=== PATIENT | male | born 1970 | race Caucasian/White ===

== ENCOUNTER → 2018-05-19 | Outpatient (CLI) | payer BC | LOC: GMAH 12:15 | PROVIDERS: ATTEND Family Medicine | DX: E29.9 Testicular dysfunction, unspecified (principal); Z12.5 Encounter for screening for malignant neoplasm of prostate ==

== ENCOUNTER → 2018-08-25 | Outpatient (CLI) | payer BC, OTHER ==
--- NOTE | 2018-08-25 15:30 | MRI ---
EXAM DESCRIPTION: Lumbar Spine w/o Contrast : Magnetic Resonance Imaging. CLINICAL HISTORY: LOW BACK PAIN COMPARISON: MRI lumbar spine February 25, 2012 TECHNIQUE: Multiplanar, multiple standard sequences, non contrast MRI, lumbar spine. FINDINGS: L5-S1: Normal signal in the disc and disc space preserved. Posterior elements unremarkable. Minimal to moderate narrowing of the left foramen. Right foramen patent. L4-L5: Minimal disc desiccation with disc space preserved. Hyperintense T2 signal annular fissure. Posterior disc margin. Mild canal diameter 13 mm. Bilateral facet arthrosis and hypertrophy with flavum ligaments. Mild bilateral foraminal narrowing. L3-L4: Disc desiccation with disc space preserved. No significant bulging. Mild bilateral foraminal narrowing. Minimal hypertrophy of the flavum ligaments. Mild canal narrowing. L2-L3: Disc desiccation with disc space preserved. Posterior elements unremarkable. Canal and bilateral foramina are patent. L1-L2: Normal signal in the disc with disc space preserved. Posterior elements are unremarkable. Canal and foramina are patent. T12-L1: Normal signal in the disc and disc space preserved. Anterior disc bulging anterior endplate ridging and Modic type II endplate reaction inferior T12. No posterior bulge. Posterior elements unremarkable. Bilateral foramina are patent. Conus terminates at this level. No scoliosis. Paravertebral soft tissues unremarkable.. Normal marrow signal in the remaining vertebral bodies and the posterior elements. Vertebral bodies are not compressed at any level. IMPRESSION: 1. Minimal L4-L5 disc desiccation with posterior midline bulge containing an annular fissure. Canal and bilateral foraminal narrowing stable since the prior study. 2. Disc desiccation L4 and L2-3 with disc space preserved. No significant canal or foraminal narrowing/stenosis. Electronically signed by: Kieran Rivero MD 08/25/2018 3:27 PM CDT
== END ==
LOC: MRI 08:06
PROVIDERS: ATTEND Family Medicine
DX: M51.36 Other intervertebral disc degeneration, lumbar region (principal)